=== PATIENT | female | born 1955 | race African-American/Black ===

== ENCOUNTER 2018-06-17 13:53 | Inpatient (IN) | payer BC ==
[~2018-06-17] VITALS: Ht 165.1 cm; Wt 115.7 kg
[2018-06-17 13:59] VITALS: Ht 165.1 cm; Wt 115.7 kg
[2018-06-17 14:37] LABS: PLATELET COUNT 377 x10^3mcL (130-400)
[2018-06-17 14:40] LABS: BASOPHIL % 0 % (0-2); RED CELL DISTRIBUTION WIDTH 17.3 % (11.5-14.5)
[2018-06-17 14:49] LABS: CALCIUM 9.3 mg/dL (8.5-10.1); CARBON DIOXIDE 22.5 mmol/L (21-32); POTASSIUM SERUM 3.6 mmol/L (3.5-5.1)
[2018-06-17 14:53] LABS: ALBUMIN 3.4 g/dL (3.4-5.0); BILIRUBIN TOTAL 1.4 mg/dL (0.20-1.00); TOTAL PROTEIN, SERUM 7.3 g/dL (6.4-8.2)
[2018-06-17] MEDS ORDERED: KAPVAY0.1 MG (17:47)
[2018-06-17] MEDS ORDERED: LOSARTAN POTASS25 M1 (17:48)
[2018-06-17] MEDS ORDERED: ADALAT CC30 MG (17:48)
[2018-06-17] MEDS ORDERED: METFORMIN HYDR500 M1 (17:49)
[2018-06-17] MEDS ORDERED: PAXIL10 MG (17:51)
[2018-06-17 18:22] LABS: MAGNESIUM 1.7 mg/dL (1.8-2.4); PHOSPHOROUS 4.3 mg/dL (2.5-4.9)
[2018-06-17 18:37] VITALS: BP 189/129
[2018-06-17 20:11] VITALS: BP 146/116
[2018-06-17 22:09] LABS: UA SPECIFIC GRAVITY >=1.030 (1.005-1.035); microscopic required? YES; urine erythrocyte 1+ (NEGATIVE)
[2018-06-17 22:18] LABS: AMPHETAMINE QUAL UR NONE DETECTED (See below)
[2018-06-17 22:26] VITALS: BP 157/103
[2018-06-18 01:57] VITALS: BP 138/88
[2018-06-18 05:41] VITALS: BP 148/95
[2018-06-18 06:35] LABS: CALCIUM 8.8 mg/dL (8.5-10.1); CARBON DIOXIDE 22.5 mmol/L (21-32); POTASSIUM SERUM 3.6 mmol/L (3.5-5.1)
[2018-06-18 07:01] LABS: BILIRUBIN DIRECT 0.39 mg/dL (0.0-0.2); BILIRUBIN TOTAL 1.21 mg/dL (0.20-1.00)
[2018-06-18 07:36] LABS: BASOPHIL % 0.5 % (0-2); PLATELET COUNT 318 x10^3mcL (130-400)
[2018-06-18 07:37] LABS: RED CELL DISTRIBUTION WIDTH 17.4 % (11.5-14.5)
[2018-06-18 07:47] VITALS: BP 146/104
[2018-06-18 11:37] VITALS: BP 132/85
[2018-06-18 16:05] VITALS: BP 150/100
[2018-06-18 21:15] VITALS: BP 128/70
[2018-06-19 05:59] VITALS: BP 125/87
[2018-06-19 06:28] LABS: BASOPHIL % 0.4 % (0-2); PLATELET COUNT 297 x10^3mcL (130-400)
[2018-06-19 07:02] LABS: CALCIUM 8.6 mg/dL (8.5-10.1); CARBON DIOXIDE 27.3 mmol/L (21-32); CREATININE SERUM 1.2 mg/dL (0.6-1.0); MAGNESIUM 1.6 mg/dL (1.8-2.4); PHOSPHOROUS 5.4 mg/dL (2.5-4.9); POTASSIUM SERUM 3.3 mmol/L (3.5-5.1)
[2018-06-19 07:25] LABS: RED CELL DISTRIBUTION WIDTH 17.8 % (11.5-14.5)
[2018-06-19 09:08] VITALS: BP 149/105
[2018-06-19 12:56] VITALS: BP 137/89
[2018-06-19 16:21] VITALS: BP 164/96
[2018-06-19 18:35] VITALS: BP 143/85
[2018-06-19 20:48] VITALS: BP 144/94
[2018-06-20] VITALS (8 sets, daily range): BP systolic 106–178; BP diastolic 60–116
[2018-06-20 06:48] LABS: BASOPHIL % 0.4 % (0-2); PLATELET COUNT 319 x10^3mcL (130-400)
[2018-06-20 06:56] LABS: CALCIUM 8.9 mg/dL (8.5-10.1); CARBON DIOXIDE 28.8 mmol/L (21-32); CREATININE SERUM 1.1 mg/dL (0.6-1.0); POTASSIUM SERUM 3.3 mmol/L (3.5-5.1)
[2018-06-20 07:03] LABS: RED CELL DISTRIBUTION WIDTH 18.2 % (11.5-14.5)
[2018-06-21 05:21] VITALS: BP 154/100
[2018-06-21 06:23] LABS: BASOPHIL % 0.2 % (0-2); PLATELET COUNT 312 x10^3mcL (130-400)
[2018-06-21 06:47] LABS: RED CELL DISTRIBUTION WIDTH 18.4 % (11.5-14.5)
[2018-06-21 06:50] LABS: CALCIUM 8.7 mg/dL (8.5-10.1); CARBON DIOXIDE 28.5 mmol/L (21-32); CREATININE SERUM 1.1 mg/dL (0.6-1.0); POTASSIUM SERUM 3.5 mmol/L (3.5-5.1)
[2018-06-21 09:00] VITALS: BP 161/99
[2018-06-21 10:13] VITALS: BP 161/99
[2018-06-21 12:32] VITALS: BP 161/99
[2018-06-21 13:04] VITALS: BP 130/83
[2018-06-21] MEDS ORDERED: FUROSEMIDE20 MG PO (13:59)
== END 2018-06-21 16:45 | disposition home or self-care (01) | DRG 292 ==
LOC: ED 13:53 → DU 17:21
PROVIDERS: Emergency Medicine; Internal Medicine; ADMIT Family Medicine
DX: I11.0 Hypertensive heart disease with heart failure (principal); Z68.41 Body mass index [BMI] 40.0-44.9, adult; I50.23 Acute on chronic systolic (congestive) heart failure; F32.9 Major depressive disorder, single episode, unspecified; Z79.84 Long term (current) use of oral hypoglycemic drugs; D72.829 Elevated white blood cell count, unspecified; E11.65 Type 2 diabetes mellitus with hyperglycemia; E83.42 Hypomagnesemia; Z88.8 Allergy status to other drugs, medicaments and biological substances; E80.6 Other disorders of bilirubin metabolism; Z91.048 Other nonmedicinal substance allergy status; Z90.49 Acquired absence of other specified parts of digestive tract; Z71.3 Dietary counseling and surveillance; Z88.2 Allergy status to sulfonamides; F41.1 Generalized anxiety disorder; E66.01 Morbid (severe) obesity due to excess calories; I15.9 Secondary hypertension, unspecified; I34.0 Nonrheumatic mitral (valve) insufficiency; J44.9 Chronic obstructive pulmonary disease, unspecified
CPT/HCPCS: 82962; 83880; 90658; A9500; J1940; J2405; J2785; J7030; J7620; Q0092